=== PATIENT | female | born 1990 | race African-American/Black ===

== ENCOUNTER 2023-03-04 07:33 | Emergency (ER) | payer OTHER ==
[~2023-03-04] VITALS: Ht 165.1 cm; Wt 75.8 kg
[2023-03-04] MEDS ORDERED: AMIT25TA17 (07:46)
[2023-03-04] MEDS ORDERED: VENL75CA47 (07:46)
[2023-03-04] MEDS ORDERED: SPIR50TA4 (07:46)
[2023-03-04] MEDS ORDERED: ACETAMINOPHEN 500 MG TAB PO ONE (09:40)
[2023-03-04] MEDS ORDERED: ONDANSETRON 4MG 2ML VIAL IV ONE (09:40)
[2023-03-04] MEDS ORDERED: diphenhydrAMINE 50MG/ML VIAL IV ONE (09:40)
[2023-03-04] MEDS ORDERED: NS 1,000 ML IV ONE (09:40)
[2023-03-04 10:26] LABS: BASO % 0.3 % (0.0-1.0); EOS % 0.5 % (0.0-3.0); HEMATOCRIT 39.4 % (36.0-47.0); HEMOGLOBIN 13.7 g/dl (12.0-15.5); LYMPH # 2.2 10^3/uL (1.5-5.0); LYMPH % 35.7 % (24.0-44.0); MEAN CORPUSCULAR HEMOGLOBIN 29.8 pg (27.0-33.0); MEAN CORPUSCULAR HGB CONC 34.8 g/dl (32.0-36.5); MEAN CORPUSCULAR VOLUME 85.7 fl (80.0-96.0); MONO # 0.4 10^3/uL (0.0-0.8); MONO % 7.1 % (2.0-8.0); NEUTROPHILS # 3.4 10^3/uL (1.5-8.5); NEUTROPHILS % 56.1 % (36.0-66.0); PLATELET COUNT, AUTOMATED 264 10^3/uL (150-450); WHITE BLOOD COUNT 6.1 10^3/uL (4.0-10.0)
[2023-03-04 10:47] LABS: BLOOD UREA NITROGEN 8 MG/DL (9-23); CARBON DIOXIDE LEVEL 30 MMOL/L (20-31); CHLORIDE LEVEL 104 MMOL/L (98-107); CREATININE FOR GFR 0.68 MG/DL (0.55-1.30); GLOMERULAR FILTRATION RATE > 60.0 (>60); GLUCOSE, FASTING 63 MG/DL (60-100); POTASSIUM SERUM 4.9 MMOL/L (3.5-5.1); SODIUM LEVEL 139 MMOL/L (136-145)
[2023-03-04] MEDS ORDERED: KETOROLAC 30 MG/ML 1ML VIAL IV ONE (11:25)
[2023-03-04] MEDS ORDERED: TETRACAINE 0.5% OPHTH SOLN 4ML OS ONE (11:30)
[2023-03-04] MEDS ORDERED: FLUORESCEIN OPHTH 1MG STRIP OS ONE (12:00)
[2023-03-04] MEDS ORDERED: SUMAtriptan SUCCINATE 25 MG TAB PO ONE (12:25)
[2023-03-04] MEDS ORDERED: TOPIRAMATE (TopAMAX) 25 MG TAB PO ONE (12:25)
[2023-03-04 13:09] VITALS: BP 133/68
[2023-03-04] MEDS ORDERED: TOPA1TAB PO (13:17)
[2023-03-04] MEDS ORDERED: TOPA50TA8 PO (13:17)
[2023-03-04] MEDS ORDERED: OCUF0.25 OS (13:19)
== END 2023-03-04 13:24 | disposition home or self-care (01) ==
LOC: M ED 07:33
DX: G43.909 Migraine, unspecified, not intractable, without status migrainosus (principal); S05.02XA Injury of conjunctiva and corneal abrasion without foreign body, left eye, initial encounter; F32.9 Major depressive disorder, single episode, unspecified; F41.9 Anxiety disorder, unspecified; G47.00 Insomnia, unspecified
CPT/HCPCS: 70450; 80048; 84702; 85025; 96361; 96374; 96375; 99284; J1200; J1885; J2405

== ENCOUNTER → 2023-05-03 | Outpatient (REF) | payer OTHER ==
[~2023-05-03] MED LIST: AMIT25TA17; OCUF0.25 OS; SPIR50TA4; TOPA1TAB PO; TOPA50TA8 PO; VENL75CA47
== END ==
LOC: M SFHCDERM 15:27
PROVIDERS: ATTEND Physician Assistant
DX: L70.0 Acne vulgaris (principal); Z53.9 Procedure and treatment not carried out, unspecified reason

== ENCOUNTER → 2023-06-03 | Outpatient (CLI) | payer OTHER ==
[2023-06-03 17:14] LABS: ALBUMIN 3.6 G/DL (3.2-5.2); ALKALINE PHOSPHATASE 89 U/L (46-116); ALT/SGPT 11 U/L (7.0-40); AST/SGOT < 8 U/L (<34); BILIRUBIN,TOTAL 0.6 MG/DL (0.3-1.2); BLOOD UREA NITROGEN 9 MG/DL (9-23); CARBON DIOXIDE LEVEL 28 MMOL/L (20-31); CHLORIDE LEVEL 104 MMOL/L (98-107); CHOLESTEROL LEVEL 177 MG/DL (<200); CHOLESTEROL RISK RATIO 2.28 (<5); CREATININE FOR GFR 0.66 MG/DL (0.55-1.30); GLOMERULAR FILTRATION RATE > 60.0 (>60); GLUCOSE, FASTING 51 MG/DL (60-100); HDL CHOLESTEROL 77.4 MG/DL (>40); LDL CHOLESTEROL 85.6 MG/DL (<100); NON-HDL-C 99.6 MG/DL; POTASSIUM SERUM 4.1 MMOL/L (3.5-5.1); SODIUM LEVEL 138 MMOL/L (136-145); TRIGLYCERIDES LEVEL 70 MG/DL (<150)
== END ==
LOC: M LAB 15:55
PROVIDERS: ATTEND Physician Assistant
DX: L70.0 Acne vulgaris (principal)

== ENCOUNTER → 2023-07-08 | Outpatient (REF) | payer OTHER ==
[~2023-07-08] MED LIST changes: -AMIT25TA17; +AMIT25TA19
== END ==
LOC: M SFHCDERM 13:41
PROVIDERS: ATTEND Nurse Practitioner Family
DX: Z32.00 Encounter for pregnancy test, result unknown (principal); Z79.899 Other long term (current) drug therapy; Z3A.00 Weeks of gestation of pregnancy not specified; Z53.8 Procedure and treatment not carried out for other reasons

== ENCOUNTER 2023-07-13 22:17 | Emergency (ER) | payer OTHER ==
[~2023-07-13] VITALS: Ht 165.1 cm; Wt 81.3 kg
[2023-07-14 02:01] VITALS: TEMP 97.7
[2023-07-14] MEDS ORDERED: SUMAtriptan SUCCINATE 25 MG TAB PO ONE (05:15)
[2023-07-14] MEDS ORDERED: diphenhydrAMINE 50MG/ML VIAL IV ONE (05:15)
[2023-07-14] MEDS ORDERED: KETOROLAC 30 MG/ML 1ML VIAL IV ONE (05:15)
[2023-07-14] MEDS ORDERED: METOCLOPRAMIDE INJ 10MG/2ML VIAL IV ONE (05:15)
[2023-07-14] MEDS ORDERED: IBUPROFEN 600MG TAB PO ONE (05:15)
[2023-07-14] MEDS ORDERED: ACETAMINOPHEN 500 MG TAB PO ONE (05:15)
[2023-07-14 07:07] VITALS: BP 120/78; O2SAT 98
== END 2023-07-14 07:08 | disposition home or self-care (01) ==
LOC: M ED 22:17
DX: R51.9 Headache, unspecified (principal); F41.9 Anxiety disorder, unspecified; F32.A Depression, unspecified; Z79.899 Other long term (current) drug therapy; Z88.8 Allergy status to other drugs, medicaments and biological substances
CPT/HCPCS: 84702; 96374; 96375; 99284; J1200; J1885; J2765

== ENCOUNTER → 2023-08-08 | Outpatient (REF) | payer OTHER | LOC: M SFHCPLAZ 16:11 | PROVIDERS: ATTEND Nurse Practitioner Family | DX: L70.0 Acne vulgaris (principal); Z79.899 Other long term (current) drug therapy; Z53.8 Procedure and treatment not carried out for other reasons ==

== ENCOUNTER → 2023-09-07 | Outpatient (CLI) | payer OTHER ==
[2023-09-07 18:36] LABS: CHOLESTEROL RISK RATIO 3.29 (<5); HDL CHOLESTEROL 56.4 MG/DL (>40); NON-HDL-C 129.6 MG/DL
== END ==
LOC: M PLALAB 07:14
PROVIDERS: ATTEND Nurse Practitioner Family
DX: Z51.81 Encounter for therapeutic drug level monitoring (principal); Z79.899 Other long term (current) drug therapy; L70.0 Acne vulgaris

== ENCOUNTER → 2023-09-08 | Outpatient (REF) | payer OTHER | LOC: M SFHCPLAZ 14:40 | PROVIDERS: ATTEND Nurse Practitioner Family | DX: Z53.9 Procedure and treatment not carried out, unspecified reason (principal) ==

== ENCOUNTER → 2023-10-06 | Outpatient (CLI) | payer OTHER | LOC: M LAB 15:50 | PROVIDERS: ATTEND Nurse Practitioner Family | DX: L70.0 Acne vulgaris (principal) ==

== ENCOUNTER → 2023-11-29 | Outpatient (REF) | payer OTHER | LOC: M SFHCDERM 13:52 | PROVIDERS: ATTEND Nurse Practitioner Family | DX: L70.0 Acne vulgaris (principal); Z53.9 Procedure and treatment not carried out, unspecified reason ==

== ENCOUNTER → 2024-01-04 | Outpatient (CLI) | payer OTHER ==
[2024-01-04 11:44] LABS: BASO % 0.6 % (0.0-1.0); EOS # 0.1 10^3/uL (0.0-0.5); EOS % 1.1 % (0.0-3.0); HEMATOCRIT 37.8 % (36.0-47.0); HEMOGLOBIN 13.2 g/dl (12.0-15.5); LYMPH # 2.4 10^3/uL (1.5-5.0); LYMPH % 43.9 % (24.0-44.0); MEAN CORPUSCULAR HEMOGLOBIN 28.5 pg (27.0-33.0); MEAN CORPUSCULAR HGB CONC 34.9 g/dl (32.0-36.5); MEAN CORPUSCULAR VOLUME 81.6 fl (80.0-96.0); MONO # 0.3 10^3/uL (0.0-0.8); NEUTROPHILS # 2.6 10^3/uL (1.5-8.5); PLATELET COUNT, AUTOMATED 300 10^3/uL (150-450); RED BLOOD COUNT 4.63 10^6/uL (4.00-5.40); WHITE BLOOD COUNT 5.4 10^3/uL (4.0-10.0)
[2024-01-04 12:13] LABS: ALBUMIN 3.6 G/DL (3.2-5.2); ALKALINE PHOSPHATASE 101 U/L (46-116); ALT/SGPT 15 U/L (7.0-40); AST/SGOT 12 U/L (<34); BILIRUBIN,TOTAL 0.6 MG/DL (0.3-1.2); BLOOD UREA NITROGEN 9 MG/DL (9-23); CALCIUM LEVEL 8.6 MG/DL (8.5-10.1); CARBON DIOXIDE LEVEL 29 MMOL/L (20-31); CHLORIDE LEVEL 103 MMOL/L (98-107); CHOLESTEROL LEVEL 199 MG/DL (<200); CHOLESTEROL RISK RATIO 3.06 (<5); CREATININE FOR GFR 0.65 MG/DL (0.55-1.30); GLOMERULAR FILTRATION RATE > 60.0 (>60); GLUCOSE, FASTING 126 MG/DL (60-100); HCG, SERUM QUANTITATIVE < 2.6 MIU/ML (<4.2); LDL CHOLESTEROL 115.8 MG/DL (<100); POTASSIUM SERUM 4.2 MMOL/L (3.5-5.1); SODIUM LEVEL 137 MMOL/L (136-145); TRIGLYCERIDES LEVEL 91 MG/DL (<150)
== END ==
LOC: M LAB 11:16
PROVIDERS: ATTEND Nurse Practitioner Family
DX: L70.0 Acne vulgaris (principal)

== ENCOUNTER 2024-01-20 07:16 | Emergency (ER) | payer OTHER ==
[~2024-01-20] VITALS: Ht 165.1 cm; Wt 88.4 kg
[2024-01-20] MEDS ORDERED: AMNESTEEM (07:23)
[2024-01-20] MEDS ORDERED: ISOTRETINOIN (07:23)
[2024-01-20] MEDS ORDERED: QUET1TAB17 (07:23)
[2024-01-20] MEDS: NS 1,000 ML IV ONE (10:20)
[2024-01-20] MEDS ORDERED: METOCLOPRAMIDE INJ 10MG/2ML VIAL IV ONE (10:20)
[2024-01-20] MEDS: KETOROLAC 30 MG/ML 1ML VIAL IV ONE (10:20)
[2024-01-20] MEDS: dexAMETHasone 20MG/5ML VIAL IV ONE (10:20)
[2024-01-20] MEDS ORDERED: CEPH500C PO (12:43)
[2024-01-20] MEDS ORDERED: PRED10TA2 PO (12:43)
[2024-01-20 12:54] VITALS: BP 126/84; TEMP 98.1; O2SAT 99
== END 2024-01-20 12:56 | disposition home or self-care (01) ==
LOC: M ED 07:16
DX: G43.909 Migraine, unspecified, not intractable, without status migrainosus (principal); R21 Rash and other nonspecific skin eruption; G47.00 Insomnia, unspecified; Z79.899 Other long term (current) drug therapy; Z88.8 Allergy status to other drugs, medicaments and biological substances
CPT/HCPCS: 96361; 96374; 96375; 99283; J1100; J1885

== ENCOUNTER 2024-12-26 07:45 | Emergency (ER) | payer OTHER ==
[~2024-12-26] VITALS: Ht 165.1 cm; Wt 77.5 kg
[~2024-12-26 07:45] MED LIST changes: +AMNESTEEM; +CEPH500C PO; +ISOTRETINOIN; +PRED10TA2 PO; +QUET1TAB17
[2024-12-26 07:48] VITALS: BP 165/86; TEMP 96.8; O2SAT 100
[2024-12-26] MEDS ORDERED: MUPI2OI (07:51)
[2024-12-26] MEDS ORDERED: KETO2SHA8 (07:51)
[2024-12-26] MEDS ORDERED: TRET0.02 (07:51)
[2024-12-26] MEDS ORDERED: SEMA2.4P (07:51)
[2024-12-26] MEDS ORDERED: NAPR-885 (07:51)
[2024-12-26] MEDS ORDERED: VITA100093 (07:51)
== END 2024-12-26 08:36 | disposition left against medical advice (07) ==
LOC: M ED 07:45
DX: Z53.21 Procedure and treatment not carried out due to patient leaving prior to being seen by health care provider (principal)

== ENCOUNTER → 2025-09-23 | Outpatient (REF) | payer OTHER ==
[~2025-09-23] MED LIST changes: +KETO120S5; +MUPI2OI; +NAPR-885; +SEMA2.4P; +TRET0.046; +VITA100093
[2025-09-23 18:41] LABS: BASO # 0.0 10^3/uL (0.0-0.2); BASO % 0.4 % (0.0-1.0); EOS # 0.1 10^3/uL (0.0-0.5); EOS % 1.1 % (0.0-3.0); LYMPH # 1.7 10^3/uL (1.5-5.0); LYMPH % 33.2 % (24.0-44.0); MONO # 0.4 10^3/uL (0.0-0.8); MONO % 6.7 % (2.0-8.0); NEUTROPHILS # 3.1 10^3/uL (1.5-8.5); NEUTROPHILS % 58.4 % (36.0-66.0); PLATELET COUNT, AUTOMATED 334 10^3/uL (150-450)
[2025-09-23 18:53] LABS: ALT/SGPT 17 U/L (7.0-40); AST/SGOT 16 U/L (<34); CALCIUM LEVEL 8.9 MG/DL (8.5-10.1); CARBON DIOXIDE LEVEL 28 MMOL/L (20-31); CHLORIDE LEVEL 103 MMOL/L (98-107); CHOLESTEROL LEVEL 189 MG/DL (<200); CHOLESTEROL RISK RATIO 2.69 (<5); CREATININE FOR GFR 0.71 MG/DL (0.55-1.30); GLOMERULAR FILTRATION RATE > 90.0 (>60); HCG, SERUM QUANTITATIVE < 2.6 MIU/ML (<4.2); LDL CHOLESTEROL 107.7 MG/DL (<100); NON-HDL-C 118.9 MG/DL; POTASSIUM SERUM 4.3 MMOL/L (3.5-5.1); SODIUM LEVEL 139 MMOL/L (136-145); TRIGLYCERIDES LEVEL 56 MG/DL (<150)
== END ==
LOC: M SFHCPLAZ 11:30
PROVIDERS: ATTEND Nurse Practitioner Family
DX: L70.0 Acne vulgaris (principal)